=== PATIENT | female | born 1945 | race Caucasian/White ===

== ENCOUNTER 2023-09-08 07:08 | Day surgery (SDC) | payer OTHER ==
[2023-09-05 11:44] VITALS: BMI 24.7
[2023-09-08] MEDS ORDERED: EPINEPHrine 1:1,000 1,000 MCG/ML ML ONE (07:47)
[2023-09-08] MEDS ORDERED: BUPIVACAINE HCL/PF 2.5 MG/ML - 30 ML VIAL IJ ONE (07:48)
[2023-09-08] MEDS ORDERED: MIDAZOLAM HCL 2 MG/2 ML SINGLE DOSE VIAL ONE (08:21)
[2023-09-08] MEDS ORDERED: ONDANSETRON 4 MG/2 ML VIAL ONE (08:22)
[2023-09-08] MEDS ORDERED: PROPOFOL 20 ML ONE (08:22)
[2023-09-08] MEDS ORDERED: CLINDAMYCIN 600MG PREMIX IVPB 600 MG/50 ML BAG IVPB ONE (08:23)
[2023-09-08] MEDS ORDERED: DEXAMETHASONE SOD PHOSPHATE 4 MG/1 ML VIAL ONE (08:23)
[2023-09-08] MEDS ORDERED: ONDANSETRON 4 MG/2 ML VIAL IVPUSH PRN (08:27)
[2023-09-08] MEDS ORDERED: oxyCODONE HCL 5 MG TABLET PO PRN ×2 (08:27)
[2023-09-08] MEDS ORDERED: LACTATED RINGERS SOLUTION 1,000 ML IV SCH (08:30)
[2023-09-08 11:43] VITALS: RESP 16; TEMP 97.9
[2023-09-08 12:01] VITALS: BP 144/81; PULSE 80
== END 2023-09-08 12:00 | disposition home or self-care (01) ==
LOC: FASU 07:08
PROVIDERS: ATTEND Orthopaedic Surgery
PROC: 0SBD4ZZ Excision of Left Knee Joint, Percutaneous Endoscopic Approach (ICD-10-PCS; 2023-09-08)
PROC: 0SBD4ZZ Excision of Left Knee Joint, Percutaneous Endoscopic Approach (ICD-10-PCS; principal; 2023-09-08 09:45)
DX: S83.282A Other tear of lateral meniscus, current injury, left knee, initial encounter (principal); S83.8X2A Sprain of other specified parts of left knee, initial encounter; M65.862 Other synovitis and tenosynovitis, left lower leg; X58.XXXA Exposure to other specified factors, initial encounter; Y93.9 Activity, unspecified; Y92.9 Unspecified place or not applicable
CPT/HCPCS: 94760